=== PATIENT | male | born 1950 | race Caucasian/White ===

== ENCOUNTER 2020-01-23 14:34 | Outpatient (CLI) | payer OTHER ==
--- NOTE | 2020-01-23 15:19 | RAD ---
PA AND LATERAL VIEWS OF THE CHEST: 01/23/20 HISTORY: Latent tuberculosis. FINDINGS: The heart size is normal. The lungs are expanded and clear. There are degenerative changes in the spi ne. IMPRESSION: No radiographic evidence of active pulmonary tuberculosis. POS: [facility]
== END 2020-01-23 14:35 | disposition home or self-care (01) ==
LOC: SCSRAD 14:34
PROVIDERS: ATTEND Internal Medicine
DX: Z22.7 Latent tuberculosis (principal)
CPT/HCPCS: 71046

== ENCOUNTER 2021-01-28 08:17 | Day surgery (SDC) | payer MEDICARE ==
[~2021-01-28 08:17] MED LIST: Acetaminophen 500 MG TAB PO PRN; INFLIXIMAB ABDA IVPB SCH; SODIUM CHLORIDE 0.9% IVPB SCH; diphenhydrAMINE 25 MG CAP PO PRN
[2021-01-28 09:05] VITALS: BP 182/94; TEMP 98.5
== END 2021-01-28 11:55 | disposition home or self-care (01) ==
LOC: ONC/OP 08:17
PROVIDERS: ATTEND Internal Medicine
DX: K51.90 Ulcerative colitis, unspecified, without complications (principal)
CPT/HCPCS: 96413; 96415; J2274; J7050; Q0163

== ENCOUNTER 2021-02-11 08:19 | Day surgery (SDC) | payer MEDICARE ==
[~2021-02-11 08:19] MED LIST changes: -Acetaminophen 500 MG TAB PO PRN; +Acetaminophen 500 MG TAB PO SCH; -diphenhydrAMINE 25 MG CAP PO PRN; +diphenhydrAMINE 25 MG CAP PO SCH
[2021-02-11] MEDS ORDERED: Sodium Chloride 0.9% 20 ML ONE (08:54)
[2021-02-11 08:56] VITALS: BP 155/88; TEMP 98
== END 2021-02-11 11:33 | disposition home or self-care (01) ==
LOC: ONC/OP 08:19
PROVIDERS: ATTEND Internal Medicine
DX: K51.90 Ulcerative colitis, unspecified, without complications (principal)
CPT/HCPCS: 96413; 96415; J2274; J7050; Q0163

== ENCOUNTER 2021-03-11 08:30 | Day surgery (SDC) | payer MEDICARE ==
[~2021-03-11 08:30] MED LIST changes: +Acetaminophen 500 MG TAB PO PRN; -Acetaminophen 500 MG TAB PO SCH; +diphenhydrAMINE 25 MG CAP PO PRN; -diphenhydrAMINE 25 MG CAP PO SCH
[2021-03-11] MEDS ORDERED: Sodium Chloride 0.9% 20 ML ONE (08:40)
[2021-03-11 08:56] VITALS: BP 142/85; TEMP 98.6
== END 2021-03-11 11:28 | disposition home or self-care (01) ==
LOC: ONC/OP 08:30
PROVIDERS: ATTEND Internal Medicine
DX: K51.90 Ulcerative colitis, unspecified, without complications (principal)
CPT/HCPCS: 96413; 96415; J2274; J7050; Q0163

== ENCOUNTER 2021-07-01 08:28 | Day surgery (SDC) | payer MEDICARE ==
[~2021-07-01 08:28] MED LIST changes: -Acetaminophen 500 MG TAB PO PRN; -diphenhydrAMINE 25 MG CAP PO PRN
[2021-07-01] MEDS ORDERED: Acetaminophen 500 MG TAB PO PRN (08:37)
[2021-07-01] MEDS ORDERED: diphenhydrAMINE 25 MG CAP PO PRN (08:37)
[2021-07-01] MEDS ORDERED: INFLIXIMAB ABDA IVPB SCH (08:45)
[2021-07-01] MEDS ORDERED: SODIUM CHLORIDE 0.9% IVPB SCH (08:45)
[2021-07-01 08:52] VITALS: BP 166/77; TEMP 98.6
[2021-07-01] MEDS ORDERED: Sodium Chloride 0.9% 20 ML ONE (08:59)
== END 2021-07-01 14:04 | disposition home or self-care (01) ==
LOC: ONC/OP 08:28
PROVIDERS: ATTEND Internal Medicine
DX: K51.90 Ulcerative colitis, unspecified, without complications (principal)
CPT/HCPCS: 96413; 96415; J7050; Q0163; Q5104

== ENCOUNTER 2021-08-26 08:30 | Day surgery (SDC) | payer MEDICARE ==
[2021-08-26] MEDS ORDERED: INFLIXIMAB ABDA IVPB SCH (09:15)
[2021-08-26] MEDS ORDERED: SODIUM CHLORIDE 0.9% IVPB SCH (09:15)
[2021-08-26] MEDS ORDERED: diphenhydrAMINE 25 MG CAP PO PRN (09:17)
[2021-08-26] MEDS ORDERED: Acetaminophen 500 MG TAB PO PRN (09:17)
[2021-08-26 09:47] VITALS: BP 121/75; TEMP 97.6
[2021-08-26] MEDS ORDERED: diphenhydrAMINE 25 MG CAP ONE (10:00)
[2021-08-26] MEDS ORDERED: Acetaminophen 500 MG TAB ONE (10:00)
== END 2021-08-26 13:42 | disposition home or self-care (01) ==
LOC: ONC/OP 08:30
PROVIDERS: ATTEND Internal Medicine
DX: K51.90 Ulcerative colitis, unspecified, without complications (principal)
CPT/HCPCS: 96413; 96415; J7050; Q5104

== ENCOUNTER 2021-10-21 10:59 | Day surgery (SDC) | payer MEDICARE ==
[~2021-10-21 10:59] MED LIST changes: +Acetaminophen 500 MG TAB PO SCH; +diphenhydrAMINE 25 MG CAP PO SCH
[2021-10-21] MEDS ORDERED: diphenhydrAMINE 25 MG CAP ONE (11:08)
[2021-10-21] MEDS ORDERED: Acetaminophen 500 MG TAB ONE ×2 (11:08→11:09)
[2021-10-21] MEDS ORDERED: Sodium Chloride 0.9% 10 ML ONE ×2 (11:09)
[2021-10-21 11:24] VITALS: BP 176/86
== END 2021-10-21 13:49 | disposition home or self-care (01) ==
LOC: ONC/OP 10:59
PROVIDERS: ATTEND Internal Medicine
DX: K51.90 Ulcerative colitis, unspecified, without complications (principal)
CPT/HCPCS: 96413; 96415; J7050; Q5104

== ENCOUNTER 2022-02-10 08:53 | Day surgery (SDC) | payer MEDICARE ==
[2022-02-10] MEDS ORDERED: Acetaminophen 500 MG TAB PO SCH (09:00)
[2022-02-10] MEDS ORDERED: diphenhydrAMINE 25 MG CAP PO SCH (09:00)
[2022-02-10] MEDS ORDERED: SODIUM CHLORIDE 0.9% IVPB SCH ×3 (09:00→09:15)
[2022-02-10] MEDS ORDERED: INFLIXIMAB ABDA IVPB SCH ×3 (09:00→09:15)
[2022-02-10 09:11] VITALS: BP 181/87; TEMP 97.8
[2022-02-10] MEDS ORDERED: diphenhydrAMINE 25 MG CAP ONE (09:13)
[2022-02-10] MEDS ORDERED: Acetaminophen 500 MG TAB ONE ×2 (09:13)
== END 2022-02-10 12:00 | disposition home or self-care (01) ==
LOC: ONC/OP 08:53
PROVIDERS: ATTEND Internal Medicine
DX: K51.90 Ulcerative colitis, unspecified, without complications (principal)
CPT/HCPCS: 96413; 96415; J7050; Q5104

== ENCOUNTER 2022-02-23 08:47 | Inpatient (IN) | payer MEDICARE ==
[2022-02-23 10:15] LABS: Bilirubin Negative (Negative); Blood, Urine Negative (Negative); Clarity Clear (Clear); Glucose, Urine (Dipstick) Normal (Negative); Ketone, Urine Negative (Negative); Leukocyte Negative Leu/uL (Negative); Nitrite Negative (Negative); Protein, Urine (Dipstick) Negative (Neg-Trace); Urobilinogen Normal mg/dL (Less than 2)
[2022-02-23 10:21] LABS: #Eosinphils 0.2 thou/uL (0.0-0.7); #Lymphocytes 1.2 thou/uL (1.20-3.40); #Monocytes 0.4 thou/uL (0.11-0.59); #Neutrophils 1.3 thou/uL (1.40-6.50); %Basophils 0.8 % (0.0-1.0); %Eosinophils 6.3 % (0.0-10.0); %Lymphocytes 39.4 % (21.0-51.0); %Monocytes 11.4 % (0.0-10.0); %Neutrophils 42.2 % (42.0-75.0); Hemoglobin 12.7 g/dL (14.0-18.0); Mean Corpuscular HGB CONC 32.2 g/dL (32.0-36.0); Mean Corpuscular Hemoglobin 32.9 pg (27.0-31.0); Mean Platelet Volume 8.5 fL (7.4-10.4); Platelet Count 191 thou/uL (130-400); RBC Distribution Width 12.7 % (11.5-14.5); Red Blood Cell (RBC) Count 3.87 mill/uL (4.70-6.10)
[2022-02-23 10:40] LABS: ALT (SGPT) Less than 7 U/L (8-55); AST (SGOT) 25 U/L (5-34); Alkaline Phosphatase 45 U/L (40-110); Anion Gap 13 mmol/L (10-20); BUN (Urea Nitrogen) 25 mg/dL (8.4-25.7); Bilirubin, Total 0.5 mg/dL (0.2-1.2); CK (CPK) 106 U/L (30-200); Calc. Creatinine Clearance 0 mL/min (70-130); Calcium 9.4 mg/dL (7.8-10.44); Carbon Dioxide 23 mmol/L (23-31); Chloride 107 mmol/L (98-107); Globulin 3.3 g/dL (2.4-3.5); Glucose 157 mg/dL (83-110); Potassium 3.9 mmol/L (3.5-5.1); Protein, Total 7.3 g/dL (5.8-8.1); Sodium 139 mmol/L (136-145)
[2022-02-23] MEDS ORDERED: Ondansetron ODT 4 MG TAB PO PRN (14:06)
[2022-02-23] MEDS ORDERED: Ondansetron PF 4 MG/2 ML Vial IVP PRN (14:07)
[2022-02-23] MEDS ORDERED: Acetaminophen 325 MG TAB PO PRN (14:07)
[2022-02-23 14:37] VITALS: BMI 27.8
[2022-02-23] MEDS: ceFAZolin (BATCH) 2 GM in Premix Bag 1 BAG IVPB SCH ×2 (15:00→20:51)
[2022-02-23] MEDS ORDERED: metFORMIN 500 MG TAB PO SCH (22:15)
[2022-02-23] MEDS ORDERED: Lisinopril 20 MG TAB PO SCH (22:15)
[2022-02-23] MEDS ORDERED: Ezetimibe 10 MG TAB PO SCH (22:15)
[2022-02-23] MEDS ORDERED: Atorvastatin Calcium 20 MG TAB PO SCH (22:15)
[2022-02-24] MEDS: CEFAZOLIN 2 GM in Sodium Chloride 0.9% 100 ML IVPB SCH ×3 (05:33→20:36)
[2022-02-24] MEDS: Lisinopril 20 MG TAB PO SCH ×2 (08:05→20:35)
[2022-02-24] MEDS: metFORMIN 500 MG TAB PO SCH ×2 (10:23→18:47)
[2022-02-24] MEDS ORDERED: Neomycin-Polymyxin 1 ML AMP ONE (14:49)
[2022-02-24] MEDS ORDERED: Bupivacaine PF 0.5% 30 ML VIAL ONE (14:49)
[2022-02-24] MEDS ORDERED: Bacitracin Zinc Ointment 30 gm TUBE ONE (14:50)
[2022-02-24] MEDS ORDERED: fentaNYL Citrate/PF 100 MCG/2 ML SYRINGE ONE (14:50)
[2022-02-24] MEDS ORDERED: Ondansetron PF 4 MG/2 ML Vial ONE (15:25)
[2022-02-24] MEDS ORDERED: Lidocaine 1% PF 5 ML VIAL ONE (15:25)
[2022-02-24] MEDS ORDERED: ePHEDrine 50 MG/ML VIAL ONE (15:25)
[2022-02-24] MEDS ORDERED: PROPOFOL 200 MG/20 ML VIAL ONE (15:25)
[2022-02-24] MEDS ORDERED: Labetalol HCl 100 MG/20 ML VIAL ONE ×2 (16:35→17:17)
[2022-02-24] MEDS ORDERED: Fentanyl 100 MCG/2 ML VIAL ONE ×2 (16:36→17:01)
[2022-02-24] MEDS ORDERED: Ondansetron HCl/PF 4 MG/2 ML Vial IVP PRN (16:36)
[2022-02-24] MEDS ORDERED: Promethazine HCl 25 MG/ML VIAL IVPB PRN (16:36)
[2022-02-24] MEDS ORDERED: Promethazine HCl 25 MG/ML VIAL IM PRN (16:36)
[2022-02-24] MEDS ORDERED: Labetalol HCl 100 MG/20 ML VIAL SLOW IVP PRN (16:37)
[2022-02-24] MEDS ORDERED: hydrALAZINE 20 MG/ML VIAL SLOW IVP PRN (16:39)
[2022-02-24] MEDS ORDERED: hydrALAZINE 20 MG/ML VIAL ONE (16:40)
[2022-02-24] MEDS ORDERED: Ketorolac Tromethamine 30 MG/ML VIAL ONE (16:54)
[2022-02-24] MEDS ORDERED: Ketorolac Tromethamine 30 MG/ML VIAL IVP SCH (17:00)
[2022-02-24] MEDS ORDERED: HYDROmorphone 0.5 MG/0.5 ML SYRINGE ONE (17:34)
[2022-02-24] MEDS ORDERED: HYDROmorphone 2 MG/ML VIAL ONE (17:34)
[2022-02-24] MEDS: Morphine 4 MG/ML VIAL SLOW IVP PRN (18:46)
[2022-02-24] MEDS: Meperidine HCl/PF 25 MG/ML VIAL IM PRN (20:27)
[2022-02-24] MEDS: Atorvastatin Calcium 20 MG TAB PO SCH (20:35)
[2022-02-24] MEDS: Ezetimibe 10 MG TAB PO SCH (20:36)
[2022-02-25] MEDS: Morphine 4 MG/ML VIAL SLOW IVP PRN ×5 (03:02→18:48)
[2022-02-25] MEDS: CEFAZOLIN 2 GM in Sodium Chloride 0.9% 100 ML IVPB SCH ×3 (05:16→20:12)
[2022-02-25] MEDS: metFORMIN 500 MG TAB PO SCH ×2 (07:06→15:21)
[2022-02-25] MEDS: Lisinopril 20 MG TAB PO SCH ×2 (07:06→20:11)
[2022-02-25] MEDS: Atorvastatin Calcium 20 MG TAB PO SCH (20:11)
[2022-02-25] MEDS: Ezetimibe 10 MG TAB PO SCH (20:11)
[2022-02-26] MEDS: Morphine 4 MG/ML VIAL SLOW IVP PRN ×5 (00:20→22:43)
[2022-02-26] MEDS: CEFAZOLIN 2 GM in Sodium Chloride 0.9% 100 ML IVPB SCH ×3 (05:15→20:50)
[2022-02-26] MEDS: Promethazine HCl 25 MG/ML VIAL IM PRN ×2 (05:21→22:43)
[2022-02-26] MEDS: Lisinopril 20 MG TAB PO SCH ×2 (08:35→20:50)
[2022-02-26] MEDS: metFORMIN 500 MG TAB PO SCH ×2 (08:36→17:54)
[2022-02-26] MEDS: Ezetimibe 10 MG TAB PO SCH (20:50)
[2022-02-26] MEDS: Atorvastatin Calcium 20 MG TAB PO SCH (20:50)
[2022-02-26] MEDS: Meperidine HCl/PF 25 MG/ML VIAL IM PRN (21:30)
[2022-02-27] MEDS: Morphine 4 MG/ML VIAL SLOW IVP PRN ×3 (05:22→17:16)
[2022-02-27] MEDS: CEFAZOLIN 2 GM in Sodium Chloride 0.9% 100 ML IVPB SCH ×3 (05:23→21:08)
[2022-02-27] MEDS: metFORMIN 500 MG TAB PO SCH ×2 (08:14→17:13)
[2022-02-27] MEDS: Lisinopril 20 MG TAB PO SCH ×2 (08:14→21:09)
[2022-02-27] MEDS: Promethazine HCl 25 MG/ML VIAL IM PRN ×2 (13:48→17:19)
[2022-02-27] MEDS: Ezetimibe 10 MG TAB PO SCH (21:08)
[2022-02-27] MEDS: Atorvastatin Calcium 20 MG TAB PO SCH (21:09)
[2022-02-28] MEDS: CEFAZOLIN 2 GM in Sodium Chloride 0.9% 100 ML IVPB SCH (05:22)
[2022-02-28] MEDS: Morphine 4 MG/ML VIAL SLOW IVP PRN ×2 (05:27→08:44)
[2022-02-28] MEDS: metFORMIN 500 MG TAB PO SCH (08:06)
[2022-02-28] MEDS: Lisinopril 20 MG TAB PO SCH (08:06)
[2022-02-28 08:41] VITALS: BP 147/84; TEMP 98
== END 2022-02-28 10:23 | disposition home or self-care (01) | DRG 857 ==
LOC: ERS 08:47 → INTOOBSV 11:50 → T4-B 11:50 → OBSVTOIN 02-25 16:47
PROVIDERS: ADMIT Orthopaedic Surgery; ATTEND Orthopaedic Surgery
PROC: 0LB70ZZ Excision of Right Hand Tendon, Open Approach (ICD-10-PCS; principal; 2022-02-24)
DX: T81.42XA Infection following a procedure, deep incisional surgical site, initial encounter (principal); M86.8X4 Other osteomyelitis, hand; L03.113 Cellulitis of right upper limb; K51.90 Ulcerative colitis, unspecified, without complications; Z20.822 Contact with and (suspected) exposure to COVID-19; I10 Essential (primary) hypertension; G89.29 Other chronic pain; M54.9 Dorsalgia, unspecified; B95.61 Methicillin susceptible Staphylococcus aureus infection as the cause of diseases classified elsewhere; E11.69 Type 2 diabetes mellitus with other specified complication; M65.841 Other synovitis and tenosynovitis, right hand; Z79.899 Other long term (current) drug therapy; Z79.84 Long term (current) use of oral hypoglycemic drugs
CPT/HCPCS: 36415; 36416; 80053; 81003; 82550; 83605; 85025; 87040; 87070; 87086; 87205; 96365; 96366; 96375; 99285; G0378; J0360; J0690; J1170; J1885; J2175; J2270; J2405; J2550; J2704; J3010; J3490; S0020; U0003; U0005

== ENCOUNTER 2022-03-02 15:22 | Outpatient (CLI) | payer MEDICARE | END 2022-03-02 15:23 | disposition home or self-care (01) | LOC: LABBT 15:22 | PROVIDERS: ATTEND Orthopaedic Surgery Hand Surgery | DX: S61.202A Unspecified open wound of right middle finger without damage to nail, initial encounter (principal); L02.511 Cutaneous abscess of right hand; B95.61 Methicillin susceptible Staphylococcus aureus infection as the cause of diseases classified elsewhere; Z20.822 Contact with and (suspected) exposure to COVID-19 | CPT/HCPCS: U0003; U0005 ==

== ENCOUNTER 2022-03-04 12:25 | Day surgery (SDC) | payer MEDICARE ==
[2022-03-03 11:08] VITALS: BMI 27.8
[2022-03-04] MEDS ORDERED: Bacitracin Zinc Ointment 30 gm TUBE ONE (16:39)
[2022-03-04] MEDS ORDERED: Neomycin-Polymyxin 1 ML AMP ONE (16:39)
[2022-03-04] MEDS ORDERED: Thrombin 5000 UNITS/5 ML VIAL ONE (16:39)
[2022-03-04] MEDS ORDERED: Bupivacaine PF 0.5% 30 ML VIAL ONE (16:39)
[2022-03-04] MEDS ORDERED: fentaNYL Citrate/PF 100 MCG/2 ML SYRINGE ONE (16:47)
[2022-03-04] MEDS ORDERED: Labetalol HCl 100 MG/20 ML VIAL ONE (17:00)
[2022-03-04] MEDS ORDERED: PROPOFOL 200 MG/20 ML VIAL ONE (17:00)
[2022-03-04] MEDS ORDERED: Lidocaine 1% PF 5 ML VIAL ONE (17:00)
[2022-03-04] MEDS ORDERED: Ondansetron PF 4 MG/2 ML Vial ONE (17:00)
[2022-03-04] MEDS ORDERED: Fentanyl 100 MCG/2 ML VIAL ONE ×3 (18:20→20:04)
[2022-03-04] MEDS ORDERED: Morphine 4 MG/ML VIAL ONE (18:38)
[2022-03-04] MEDS ORDERED: Ketorolac Tromethamine 30 MG/ML VIAL ONE (18:38)
[2022-03-04] MEDS ORDERED: Meperidine HCl/PF 25 MG/ML VIAL ONE (20:05)
[2022-03-04] MEDS ORDERED: Promethazine HCl 25 MG/ML VIAL ONE (20:05)
== END 2022-03-04 20:40 | disposition home or self-care (01) ==
LOC: SDC 12:25
PROVIDERS: ATTEND Orthopaedic Surgery Hand Surgery
PROC: 0JBJ0ZZ Excision of Right Hand Subcutaneous Tissue and Fascia, Open Approach (ICD-10-PCS; principal; 2022-03-04)
DX: S61.401A Unspecified open wound of right hand, initial encounter (principal); E11.9 Type 2 diabetes mellitus without complications; I10 Essential (primary) hypertension; Z79.84 Long term (current) use of oral hypoglycemic drugs; Z79.899 Other long term (current) drug therapy
CPT/HCPCS: J1885; J2175; J2270; J2405; J2550; J2704; J3010; S0020

== ENCOUNTER 2022-04-07 08:35 | Day surgery (SDC) | payer MEDICARE ==
[2022-04-07] MEDS ORDERED: SODIUM CHLORIDE 0.9% IVPB SCH ×2 (08:45→09:00)
[2022-04-07] MEDS ORDERED: Acetaminophen 500 MG TAB PO SCH (08:45)
[2022-04-07] MEDS ORDERED: INFLIXIMAB ABDA IVPB SCH ×2 (08:45→09:00)
[2022-04-07] MEDS ORDERED: diphenhydrAMINE 25 MG CAP PO SCH (08:45)
[2022-04-07] MEDS ORDERED: diphenhydrAMINE 25 MG CAP ONE (08:46)
[2022-04-07] MEDS ORDERED: Acetaminophen 500 MG TAB ONE ×2 (08:46)
[2022-04-07 09:08] VITALS: BP 136/63
== END 2022-04-07 12:11 | disposition home or self-care (01) ==
LOC: ONC/OP 08:35
PROVIDERS: ATTEND Internal Medicine
DX: K51.90 Ulcerative colitis, unspecified, without complications (principal)
CPT/HCPCS: 96413; 96415; J7050; Q5104

== ENCOUNTER 2022-06-02 09:06 | Day surgery (SDC) | payer MEDICARE ==
[2022-06-02] MEDS ORDERED: Acetaminophen 500 MG TAB ONE ×2 (09:30)
[2022-06-02] MEDS ORDERED: diphenhydrAMINE 25 MG CAP ONE (09:30)
[2022-06-02 13:23] VITALS: BP 171/84; TEMP 97.7
== END 2022-06-02 13:26 | disposition home or self-care (01) ==
LOC: ONC/OP 09:06
PROVIDERS: ATTEND Internal Medicine
DX: K51.90 Ulcerative colitis, unspecified, without complications (principal)
CPT/HCPCS: 96413; 96415; J7050; Q5104

== ENCOUNTER 2022-09-22 08:53 | Day surgery (SDC) | payer OTHER ==
[~2022-09-22 08:53] MED LIST changes: +Acetaminophen 500 MG TAB PO PRN; -Acetaminophen 500 MG TAB PO SCH; -INFLIXIMAB ABDA IVPB SCH; -SODIUM CHLORIDE 0.9% IVPB SCH; +diphenhydrAMINE 25 MG CAP PO PRN; -diphenhydrAMINE 25 MG CAP PO SCH
[2022-09-22] MEDS ORDERED: INFLIXIMAB ABDA IVPB SCH (09:15)
[2022-09-22] MEDS ORDERED: SODIUM CHLORIDE 0.9% IVPB SCH (09:15)
[2022-09-22] MEDS ORDERED: Acetaminophen 500 MG TAB ONE ×2 (09:26)
[2022-09-22] MEDS ORDERED: diphenhydrAMINE 25 MG CAP ONE (09:27)
[2022-09-22 12:14] VITALS: BP 158/76; TEMP 97.4
== END 2022-09-22 13:21 | disposition home or self-care (01) ==
LOC: ONC/OP 08:53
PROVIDERS: ATTEND Internal Medicine
DX: K51.90 Ulcerative colitis, unspecified, without complications (principal)
CPT/HCPCS: 96413; 96415; J7050; Q5104

== ENCOUNTER 2022-11-13 08:37 | Day surgery (SDC) | payer OTHER ==
[~2022-11-13 08:37] MED LIST changes: -Acetaminophen 500 MG TAB PO PRN; +Acetaminophen 500 MG TAB PO SCH; +INFLIXIMAB ABDA IVPB SCH; +SODIUM CHLORIDE 0.9% IVPB SCH; -diphenhydrAMINE 25 MG CAP PO PRN; +diphenhydrAMINE 25 MG CAP PO SCH
[2022-11-13] MEDS ORDERED: INFLIXIMAB ABDA IVPB SCH (09:00)
[2022-11-13] MEDS ORDERED: SODIUM CHLORIDE 0.9% IVPB SCH (09:00)
[2022-11-13] MEDS ORDERED: diphenhydrAMINE 25 MG CAP ONE (09:06)
[2022-11-13] MEDS ORDERED: Acetaminophen 500 MG TAB ONE (09:06)
[2022-11-13 09:22] VITALS: BP 171/86; TEMP 97.7
== END 2022-11-13 11:45 | disposition home or self-care (01) ==
LOC: ONC/OP 08:37
PROVIDERS: ATTEND Internal Medicine
DX: K51.90 Ulcerative colitis, unspecified, without complications (principal); L02.511 Cutaneous abscess of right hand; B95.61 Methicillin susceptible Staphylococcus aureus infection as the cause of diseases classified elsewhere
CPT/HCPCS: 96413; 96415; J7050; Q5104

== ENCOUNTER 2023-01-08 08:34 | Day surgery (SDC) | payer OTHER ==
[~2023-01-08 08:34] MED LIST changes: +EPINEPHrine 1 MG/ML AMP IM PRN; -INFLIXIMAB ABDA IVPB SCH; +INFLIXIMAB-ABDA 486 MG in Sodium Chloride 0.9% 250 ML 201.4 ML IVPB SCH; -SODIUM CHLORIDE 0.9% IVPB SCH; +Sodium Chloride 0.9% 500 ML IV PRN; +diphenhydrAMINE 50 MG/ML VIAL IVP PRN
[2023-01-08] MEDS ORDERED: SODIUM CHLORIDE 0.9% IVPB SCH (09:00)
[2023-01-08] MEDS ORDERED: INFLIXIMAB ABDA IVPB SCH (09:00)
[2023-01-08 09:06] VITALS: BP 156/77; TEMP 97.8
[2023-01-08] MEDS ORDERED: diphenhydrAMINE 25 MG CAP ONE (09:29)
[2023-01-08] MEDS ORDERED: Acetaminophen 500 MG TAB ONE (09:29)
== END 2023-01-08 11:50 | disposition home or self-care (01) ==
LOC: ONC/OP 08:34
PROVIDERS: ATTEND Internal Medicine
DX: K51.90 Ulcerative colitis, unspecified, without complications (principal)
CPT/HCPCS: 96413; 96415; Q5104; J7050

== ENCOUNTER 2023-04-22 08:39 | Day surgery (SDC) | payer OTHER ==
[~2023-04-22 08:39] MED LIST changes: +INFLIXIMAB ABDA IVPB SCH; -INFLIXIMAB-ABDA 486 MG in Sodium Chloride 0.9% 250 ML 201.4 ML IVPB SCH; +SODIUM CHLORIDE 0.9% IVPB SCH
[2023-04-22] MEDS ORDERED: Acetaminophen 500 MG TAB ONE (08:57)
[2023-04-22] MEDS ORDERED: diphenhydrAMINE 25 MG CAP ONE (08:57)
[2023-04-22 09:07] VITALS: BP 143/71; TEMP 98.6
== END 2023-04-22 12:00 | disposition home or self-care (01) ==
LOC: ONC/OP 08:39
PROVIDERS: ATTEND Internal Medicine
DX: K51.90 Ulcerative colitis, unspecified, without complications (principal)
CPT/HCPCS: 96413; 96415; Q5104; J7050

== ENCOUNTER 2023-06-17 08:40 | Day surgery (SDC) | payer OTHER ==
[~2023-06-17 08:40] MED LIST changes: -EPINEPHrine 1 MG/ML AMP IM PRN; -Sodium Chloride 0.9% 500 ML IV PRN; -diphenhydrAMINE 50 MG/ML VIAL IVP PRN
[2023-06-17] MEDS ORDERED: INFLIXIMAB ABDA IVPB SCH (09:00)
[2023-06-17] MEDS ORDERED: SODIUM CHLORIDE 0.9% IVPB SCH (09:00)
[2023-06-17] MEDS ORDERED: Acetaminophen 500 MG TAB ONE (09:01)
[2023-06-17] MEDS ORDERED: diphenhydrAMINE 25 MG CAP ONE (09:01)
[2023-06-17 09:21] VITALS: BP 136/75; TEMP 98.3
== END 2023-06-17 13:00 | disposition home or self-care (01) ==
LOC: ONC/OP 08:40
PROVIDERS: ATTEND Internal Medicine
DX: K51.90 Ulcerative colitis, unspecified, without complications (principal)
CPT/HCPCS: 96413; 96415; Q5104; J7050

== ENCOUNTER 2023-08-12 08:50 | Day surgery (SDC) | payer OTHER ==
[2023-08-12] MEDS ORDERED: INFLIXIMAB ABDA IVPB SCH (09:00)
[2023-08-12] MEDS ORDERED: Acetaminophen 500 MG TAB ONE (09:00)
[2023-08-12] MEDS ORDERED: SODIUM CHLORIDE 0.9% IVPB SCH (09:00)
[2023-08-12] MEDS ORDERED: diphenhydrAMINE 25 MG CAP ONE (09:00)
[2023-08-12 11:11] VITALS: BP 136/62; TEMP 97.9
== END 2023-08-12 12:40 | disposition home or self-care (01) ==
LOC: ONC/OP 08:50
PROVIDERS: ATTEND Internal Medicine
DX: K51.90 Ulcerative colitis, unspecified, without complications (principal)
CPT/HCPCS: 96413; 96415; Q5104; J7050

== ENCOUNTER 2023-11-30 09:17 | Day surgery (SDC) | payer OTHER ==
[~2023-11-30 09:17] MED LIST changes: -Acetaminophen 500 MG TAB PO SCH; -diphenhydrAMINE 25 MG CAP PO SCH
[2023-11-30] MEDS ORDERED: Acetaminophen 500 MG TAB ONE (09:38)
[2023-11-30] MEDS ORDERED: diphenhydrAMINE 25 MG CAP ONE (09:38)
[2023-11-30] MEDS: diphenhydrAMINE 25 MG CAP PO SCH (09:40)
[2023-11-30] MEDS: Acetaminophen 500 MG TAB PO SCH (09:40)
[2023-11-30 09:45] VITALS: BP 158/69; TEMP 97.7
[2023-11-30] MEDS: INFLIXIMAB ABDA IVPB SCH (10:20)
[2023-11-30] MEDS: SODIUM CHLORIDE 0.9% IVPB SCH (10:20)
== END 2023-11-30 12:47 | disposition home or self-care (01) ==
LOC: ONC/OP 09:17
PROVIDERS: ATTEND Internal Medicine
DX: K51.90 Ulcerative colitis, unspecified, without complications (principal)
CPT/HCPCS: 96413; 96415; Q5104; J7050

== ENCOUNTER 2024-03-21 08:45 | Day surgery (SDC) | payer OTHER ==
[2024-03-21] MEDS ORDERED: Acetaminophen 500 MG TAB ONE (09:10)
[2024-03-21] MEDS ORDERED: diphenhydrAMINE 25 MG CAP ONE (09:10)
[2024-03-21] MEDS: diphenhydrAMINE 25 MG CAP PO SCH (09:11)
[2024-03-21] MEDS: Acetaminophen 500 MG TAB PO SCH (09:11)
[2024-03-21 09:24] VITALS: BP 147/67; TEMP 98.1
[2024-03-21] MEDS: SODIUM CHLORIDE 0.9% IVPB SCH (10:06)
[2024-03-21] MEDS: INFLIXIMAB ABDA IVPB SCH (10:06)
== END 2024-03-21 12:39 | disposition home or self-care (01) ==
LOC: ONC/OP 08:45
PROVIDERS: ATTEND Internal Medicine
DX: K51.90 Ulcerative colitis, unspecified, without complications (principal)
CPT/HCPCS: 96413; 96415; J7050; Q5104

== ENCOUNTER 2024-05-16 08:51 | Day surgery (SDC) | payer OTHER ==
[2024-05-16 09:34] VITALS: BP 126/60; TEMP 98.3
[2024-05-16] MEDS ORDERED: diphenhydrAMINE 25 MG CAP ONE (09:46)
[2024-05-16] MEDS ORDERED: Acetaminophen 500 MG TAB ONE (09:46)
[2024-05-16] MEDS: diphenhydrAMINE 25 MG CAP PO SCH (09:49)
[2024-05-16] MEDS: Acetaminophen 500 MG TAB PO SCH (09:49)
[2024-05-16] MEDS: INFLIXIMAB ABDA IVPB SCH (10:02)
[2024-05-16] MEDS: SODIUM CHLORIDE 0.9% IVPB SCH (10:02)
== END 2024-05-16 12:25 | disposition home or self-care (01) ==
LOC: ONC/OP 08:51
PROVIDERS: ATTEND Internal Medicine
DX: K51.90 Ulcerative colitis, unspecified, without complications (principal)
CPT/HCPCS: 96413; 96415; J7050; Q5104

== ENCOUNTER 2024-07-11 08:43 | Day surgery (SDC) | payer OTHER ==
[2024-07-11] MEDS ORDERED: Acetaminophen 500 MG TAB ONE (09:37)
[2024-07-11] MEDS ORDERED: diphenhydrAMINE 25 MG CAP ONE (09:37)
[2024-07-11] MEDS: Acetaminophen 500 MG TAB PO SCH (09:38)
[2024-07-11] MEDS: diphenhydrAMINE 25 MG CAP PO SCH (09:38)
[2024-07-11] MEDS: INFLIXIMAB ABDA IVPB SCH (09:46)
[2024-07-11] MEDS: SODIUM CHLORIDE 0.9% IVPB SCH (09:46)
[2024-07-11 09:57] VITALS: BP 131/62; TEMP 97.7
== END 2024-07-11 12:10 | disposition home or self-care (01) ==
LOC: ONC/OP 08:43
PROVIDERS: ATTEND Internal Medicine
DX: K51.90 Ulcerative colitis, unspecified, without complications (principal)
CPT/HCPCS: 96413; 96415; J7050; Q5104

== ENCOUNTER 2024-09-05 08:46 | Day surgery (SDC) | payer OTHER ==
[2024-09-05] MEDS ORDERED: SODIUM CHLORIDE 0.9% IVPB SCH (09:00)
[2024-09-05] MEDS ORDERED: INFLIXIMAB ABDA IVPB SCH (09:00)
[2024-09-05] MEDS ORDERED: diphenhydrAMINE 25 MG CAP ONE (09:03)
[2024-09-05] MEDS ORDERED: Acetaminophen 500 MG TAB ONE (09:03)
[2024-09-05] MEDS: diphenhydrAMINE 25 MG CAP PO SCH (09:05)
[2024-09-05] MEDS: Acetaminophen 500 MG TAB PO SCH (09:05)
[2024-09-05] MEDS: INFLIXIMAB ABDA IVPB SCH (10:11)
[2024-09-05] MEDS: SODIUM CHLORIDE 0.9% IVPB SCH (10:11)
[2024-09-05 10:20] VITALS: BP 153/77; TEMP 97.6
== END 2024-09-05 12:40 | disposition home or self-care (01) ==
LOC: ONC/OP 08:46
PROVIDERS: ATTEND Internal Medicine
DX: K51.90 Ulcerative colitis, unspecified, without complications (principal)
CPT/HCPCS: 96413; 96415; J7050; Q5104

== ENCOUNTER 2024-11-02 08:59 | Day surgery (SDC) | payer OTHER ==
[2024-11-02] MEDS ORDERED: SODIUM CHLORIDE 0.9% IVPB SCH (09:00)
[2024-11-02] MEDS ORDERED: INFLIXIMAB ABDA IVPB SCH (09:00)
[2024-11-02] MEDS ORDERED: diphenhydrAMINE 25 MG CAP ONE (09:48)
[2024-11-02] MEDS ORDERED: Acetaminophen 500 MG TAB ONE (09:48)
[2024-11-02] MEDS: Acetaminophen 500 MG TAB PO SCH (09:49)
[2024-11-02] MEDS: diphenhydrAMINE 25 MG CAP PO SCH (09:50)
[2024-11-02 09:53] VITALS: BP 140/75; TEMP 98
[2024-11-02] MEDS: SODIUM CHLORIDE 0.9% IVPB SCH (09:56)
[2024-11-02] MEDS: INFLIXIMAB ABDA IVPB SCH (09:56)
== END 2024-11-02 12:50 | disposition home or self-care (01) ==
LOC: ONC/OP 08:59
PROVIDERS: ATTEND Internal Medicine
DX: K51.90 Ulcerative colitis, unspecified, without complications (principal)
CPT/HCPCS: 96413; 96415; J7050; Q5104